=== PATIENT | male | born 1980 | race American Indian/Alaskan Native ===

== ENCOUNTER 2017-01-07 15:33 | Emergency (ER) | payer MEDICAID, MEDICARE ==
[2017-01-07] MEDS ORDERED: XYLOCAINE 1% 20 mL INFILTRATI ONE (20:20)
[2017-01-07] MEDS ORDERED: NORCO 5/325 PO ONE (21:26)
[2017-01-07] MEDS ORDERED: TRIPLE ANTIBIOTIC TP ONE (22:17)
--- NOTE | 2017-01-07 22:23 | Emergency Department Report ---
Abscess Boil HPI - HPI Chief Complaint: Skin/Abscess/Foreign Body Stated Complaint: BOIL UNDER LEFT ARM Duration: Today Location: Upper Extremity Severity: Mild History: Yes Pain, Yes Purulent Drainage, No Fever, No Numbness, No Foreign Body , No Previous History, No Insect Bite HPI: 36 year old male presents to ED with left arm axillary abscess x1 day. patient denies being diabetic. patient is stable, neurologically intact and in no acute distress. Home Medications: Previous Rx's Medication Instructions Recorded Last Taken Type Sulfamethoxazole/Trimethoprim 1 each PO BID #14 tablet 01/07/17 Unknown Rx [Bactrim DS TAB] Allergies/Adverse Reactions: Allergies Allergy/AdvReac Type Severity Reaction Status Date / Time No Known Allergies Allergy Verified 01/07/17 17:28 ED Review of Systems ROS: Stated complaint: BOIL UNDER LEFT ARM Other details as noted in HPI Constitutional: denies: chills, fever Eyes: denies: eye pain, eye discharge, vision change ENT: denies: ear pain, throat pain Respiratory: denies: cough, shortness of breath, wheezing Cardiovascular: denies: chest pain, palpitations Endocrine: no symptoms reported Gastrointestinal: denies: abdominal pain, nausea, diarrhea Genitourinary: denies: urgency, dysuria Musculoskeletal: denies: back pain, joint swelling, arthralgia Skin: other (left axillary abscess). denies: rash, lesions Neurological: denies: headache, weakness, paresthesias Psychiatric: denies: anxiety, depression Hematological/Lymphatic: denies: easy bleeding, easy bruising ED Past Medical Hx - Past Medical History Previous Medical History?: Yes Hx Hypertension: Yes - Surgical History Past Surgical History?: Yes Additional Surgical History: back - Social History Smoking Status: Never Smoker Substance Use Type: None - Medications Home Medications: Home Medications Medication Instructions Recorded Confirmed Last Taken Type Sulfamethoxazole/Trimethoprim 1 each PO BID #14 tablet 01/07/17 Unknown Rx [Bactrim DS TAB] ED Abscess Boil Physical Exam - Exam General: Vital signs noted. No distress. Alert and acting appropriately. Size: 3 cm Exam: Yes Tenderness, Yes Fluctuance, Yes Normal Neurologic Exam, Yes Normal Circulation, No Surrounding Cellulites/Erythema, No Lymphangitis, No Crepitation , No Heart Murmur I & D Note - I & D Note I & D Note: area prepped with betadine. area numbed with 1% lidocaine 10cc's. moderate amount of purulent drainage from abscess during procedure. patient tolerated procedure well. patient agrees and understands to return to ED within 2-3 days for recheck. ED Course Vital Signs 01/07/17 17:28 Temperature 97.4 F L Pulse Rate 102 H Respiratory 16 Rate Blood Pressure 128/76 O2 Sat by Pulse 98 Oximetry Critical care attestation.: If time is entered above; I have spent that time in minutes in the direct care of this critically ill patient, excluding procedure time. ED Medical Decision Making - Lab Data Temp Pulse Resp BP Pulse Ox 99.2 F 99 H 18 133/97 100 01/07/17 22:40 01/07/17 22:40 01/07/17 22:40 01/07/17 22:40 01/07/17 22:40 - Medical Decision Making 36 year old male presents to ED with left axillary abscess x1 day. patient tolerated I&D well. patient is stable, neurologically intact and in no acute distress. patient is to return to ED within 2-3 days for recheck of abscess. ED Disposition Clinical Impression: Abscess of axilla, left Disposition: DC-01 TO HOME OR SELFCARE Is pt being admited?: No Does the pt Need Aspirin: No Condition: Stable Instructions: Abscess (ED) Additional Instructions: please return to ED or urgent care in 3 days for recheck Prescriptions: Sulfamethoxazole/Trimethoprim [Bactrim DS TAB] 1 each PO BID #14 tablet Referrals: PRIMARY CARE, [Primary Care Provider] - 3-5 Days
[2017-01-07 22:41] VITALS: BP 133/97
== END 2017-01-07 22:59 | disposition home or self-care (01) ==
LOC: ED 15:33
DX: L02.412 Cutaneous abscess of left axilla (principal); I10 Essential (primary) hypertension
CPT/HCPCS: 87116; A6250

== ENCOUNTER 2017-11-03 07:49 | Emergency (ER) | payer MEDICARE, MEDICAID ==
[2017-11-03 08:03] VITALS: BP 136/79
--- NOTE | 2017-11-03 09:46 | Emergency Department Report ---
Abscess Boil HPI - HPI Chief Complaint: Skin/Abscess/Foreign Body Stated Complaint: KNOT ON LEFT NECK Time Seen by Provider: 11/03/17 08:54 Duration: 1 Day Location: Neck (right side of neck) Severity: Mild History: Yes Pain, No Fever, No Purulent Drainage, No Numbness, No Foreign Body , No Previous History, No Insect Bite HPI: This is a 37-year-old -[place] male presents with a bump to the right side of neck since yesterday. Patient states he used hair removal cream that was prescribed by primary care provider yesterday afternoon. He noticed swelling and pain to the right side of her neck a few hours later after using cream. The bump started out small but increased in size a few hours later. It is painful to touch without drainage. Patient denies taking anything for symptoms. Denies fever, difficulty swallowing, insect bite, and numbness or tingling. Home Medications: Previous Rx's Medication Instructions Recorded Last Taken Type Sulfamethoxazole/Trimethoprim 1 each PO BID #14 tablet 01/07/17 Unknown Rx [Bactrim DS TAB] Ibuprofen [Motrin 600 MG tab] 600 mg PO Q8H PRN #15 tablet 11/03/17 Unknown Rx Sulfamethoxazole/Trimethoprim 1 each PO BID #14 tablet 11/03/17 Unknown Rx [Bactrim DS TAB] Allergies/Adverse Reactions: Allergies Allergy/AdvReac Type Severity Reaction Status Date / Time No Known Allergies Allergy Verified 01/07/17 17:28 ED Review of Systems ROS: Stated complaint: KNOT ON LEFT NECK Other details as noted in HPI Constitutional: denies: chills, fever Respiratory: denies: cough, shortness of breath, wheezing Cardiovascular: denies: chest pain, palpitations Gastrointestinal: denies: abdominal pain, nausea, diarrhea Skin: lesions (abscess on right side of neck). denies: rash Neurological: denies: headache, weakness, paresthesias Psychiatric: denies: anxiety, depression ED Past Medical Hx - Past Medical History Previous Medical History?: Yes Hx Hypertension: Yes - Surgical History Past Surgical History?: Yes Additional Surgical History: back - Social History Smoking Status: Never Smoker Substance Use Type: None - Medications Home Medications: Home Medications Medication Instructions Recorded Confirmed Last Taken Type Sulfamethoxazole/Trimethoprim 1 each PO BID #14 tablet 01/07/17 Unknown Rx [Bactrim DS TAB] Ibuprofen [Motrin 600 MG tab] 600 mg PO Q8H PRN #15 tablet 11/03/17 Unknown Rx Sulfamethoxazole/Trimethoprim 1 each PO BID #14 tablet 11/03/17 Unknown Rx [Bactrim DS TAB] ED Abscess Boil Physical Exam - Exam General: Vital signs noted. No distress. Alert and acting appropriately. Front/Back of Body, Lg (Color): 1 - 1 cm fluctuant nodule on right side of the neck, tender, no active drainage Size: 1 cm Exam: Yes Tenderness, Yes Fluctuance, Yes Normal Neurologic Exam, Yes Normal Circulation, No Surrounding Cellulites/Erythema, No Lymphangitis, No Crepitation , No Heart Murmur I & D Note - I & D Note I & D Note: The area was prepared and draped in the usual, sterile manner. The site was anesthetized with 2% lidocaine without epinephrine. A linear incision along the local skin lines was made and the purulent material expressed. The abcess was explored thoroughly and sequestered pockets were opened. Bleeding was minimal. Packing: idodoform. Followup: The patient tolerated the procedure well without complications. Standard post-procedure care was explained and return precautions are given. ED Course Vital Signs 11/03/17 08:02 Temperature 98.8 F Pulse Rate 85 Respiratory 18 Rate Blood Pressure 136/79 O2 Sat by Pulse 98 Oximetry Critical care attestation.: If time is entered above; I have spent that time in minutes in the direct care of this critically ill patient, excluding procedure time. ED Medical Decision Making - Medical Decision Making Patient is stable and examined by myself and faster. No acute signs of distress noted. Patient given tetanus vaccine. I&D performed refer to note. Discussed plan to start bactrim DS and ibuprofen with patient. Educated patient on follow up plan to have packing removed and wound reassessed in 2-3 days. Patient agrees to ED plan of care. Discharged home and follow up with PCP in 2-3 days. ED Disposition Clinical Impression: Abscess of skin of neck Disposition: TO HOME OR SELFCARE Is pt being admited?: No Does the pt Need Aspirin: No Condition: Stable Instructions: Abscess (ED), Incision and Drainage (ED), Acute Wound Care (ED) Additional Instructions: Keep packing in place for 2-3 days. Return to ER or f/u with PCP to have packing removed and wound reassessed in 48 hours. Complete full round of bactrim DS antibiotic as prescribed. Follow up with PCP or ER in 2-3 days. Return to ER if foul smelling discharge, swelling, or severe pain to wound. Prescriptions: Ibuprofen [Motrin 600 MG tab] 600 mg PO Q8H PRN #15 tablet PRN Reason: Pain Sulfamethoxazole/Trimethoprim [Bactrim DS TAB] 1 each PO BID #14 tablet Referrals: CLAUDIA BOUCHER MD [Staff Physician] - 3-5 Days [facility] [Provider Group] - 3-5 Days [facility] [Provider Group] - 3-5 Days Forms: Work/School Release Form(ED) Time of Disposition: 10:36 Print Language: INDONESIAN
[2017-11-03] MEDS ORDERED: XYLOCAINE 2% INFILTRATI ONE ×2 (10:08→10:13)
[2017-11-03] MEDS ORDERED: BOOSTRIX IM ONE (10:33)
== END 2017-11-03 11:03 | disposition home or self-care (01) ==
LOC: ED 07:49
DX: L02.11 Cutaneous abscess of neck (principal); I10 Essential (primary) hypertension; Z79.899 Other long term (current) drug therapy
CPT/HCPCS: 90471; 90715

== ENCOUNTER 2019-02-09 12:29 | Emergency (ER) | payer MEDICARE ==
[2019-02-09 12:54] VITALS: BP 109/76
--- NOTE | 2019-02-09 12:55 | Event Note ---
ED Screening Note Date of service: 02/09/19 Time: 12:53 ED Screening Note: This is a 38 y.o. M. that presents to the ER with one episode of hematochezia today. PMH of HTN This initial assessment/diagnostic orders/clinical plan/treatment(s) is/are subject to change based on patients health status, clinical progression and re- assessment by fellow clinical providers in the ED. Further treatment and workup at subsequent clinical providers discretion. Patient/guardian urged not to elope from the ED as their condition may be serious if not clinically assessed and managed. Initial orders include: Labs
[2019-02-09 13:40] LABS: Basophils # (Auto) 0.1 K/mm3 (0.0-0.1); Basophils % (Auto) 0.8 % (0.0-1.8); Eosinophils # (Auto) 0.1 K/mm3 (0.0-0.4); Hematocrit 43.6 % (35.5-45.6); Hemoglobin 14.5 gm/dl (11.8-15.2); Lymphocytes # (Auto) 2.7 K/mm3 (1.2-5.4); Lymphocytes % (Auto) 41.8 % (13.4-35.0); Mean Corpuscular HGB Conc 33 % (32-34); Mean Corpuscular Volume 87 fl (84-94); Monocytes # (Auto) 0.3 K/mm3 (0.0-0.8); Monocytes % (Auto) 4.8 % (0.0-7.3); Platelet Count 203 K/mm3 (140-440); Red Blood Count 5.01 M/mm3 (3.65-5.03); Red Cell Distribution Width 13.4 % (13.2-15.2)
--- NOTE | 2019-02-09 13:41 | Emergency Department Report ---
ED GI Bleed HPI - General Chief complaint: GI Bleed Stated complaint: BLEEDING FROM ANUS Time Seen by Provider: 02/09/19 12:53 Source: patient Mode of arrival: Ambulatory Limitations: No Limitations - History of Present Illness Initial comments: 38 yo male comes to er with co rectal bleeding x 1 this am. bright red on tissue. never had this happen in past. denies hemorrhoids. never had colonoscopy. On arrival ambulatory with normal VS. No abd pain. No n/v/d. He has not had dark black stools. Pt is not on blood thinners. complaint: blood on toilet paper -: hour(s) Associated Symptoms: denies other symptoms - Related Data Previous Rx's Medication Instructions Recorded Last Taken Type Sulfamethoxazole/Trimethoprim 1 each PO BID #14 tablet 01/07/17 Unknown Rx [Bactrim DS TAB] Sulfamethoxazole/Trimethoprim 1 each PO BID #14 tablet 11/03/17 Unknown Rx [Bactrim DS TAB] Clindamycin [Clindamycin CAP] 300 mg PO Q8H #20 cap 04/28/18 Unknown Rx Ibuprofen [Motrin 600 MG tab] 600 mg PO Q8H PRN #15 tablet 04/28/18 Unknown Rx Allergies Allergy/AdvReac Type Severity Reaction Status Date / Time No Known Allergies Allergy Verified 01/07/17 17:28 ED Review of Systems ROS: Stated complaint: BLEEDING FROM ANUS Other details as noted in HPI Comment: All other systems reviewed and negative ED Past Medical Hx - Past Medical History Hx Hypertension: Yes - Surgical History Past Surgical History?: No Additional Surgical History: back - Family History Family history: no significant - Social History Smoking Status: Never Smoker Substance Use Type: None - Medications Home Medications: Home Medications Medication Instructions Recorded Confirmed Last Taken Type Sulfamethoxazole/Trimethoprim 1 each PO BID #14 tablet 01/07/17 Unknown Rx [Bactrim DS TAB] Sulfamethoxazole/Trimethoprim 1 each PO BID #14 tablet 11/03/17 Unknown Rx [Bactrim DS TAB] Clindamycin [Clindamycin CAP] 300 mg PO Q8H #20 cap 04/28/18 Unknown Rx Ibuprofen [Motrin 600 MG tab] 600 mg PO Q8H PRN #15 tablet 04/28/18 Unknown Rx ED Physical Exam - General Limitations: No Limitations General appearance: alert, in no apparent distress - Head Head exam: Present: atraumatic, normocephalic - Eye Eye exam: Present: normal appearance - ENT ENT exam: Present: mucous membranes moist - Neck Neck exam: Present: normal inspection - Respiratory Respiratory exam: Present: normal lung sounds bilaterally. Absent: respiratory distress - Cardiovascular Cardiovascular Exam: Present: regular rate, normal rhythm. Absent: systolic murmur, diastolic murmur, rubs, gallop - GI/Abdominal GI/Abdominal exam: Present: soft, normal bowel sounds - Rectal Rectal exam: Present: normal inspection, heme (-) stool, hemorrhoids (internal) - exam: Present: normal inspection - Extremities Exam Extremities exam: Present: normal inspection - Back Exam Back exam: Present: normal inspection - Neurological Exam Neurological exam: Present: alert, oriented X3 - Psychiatric Psychiatric exam: Present: normal affect, normal mood - Skin Skin exam: Present: warm, dry, intact, normal color. Absent: rash ED Course Vital Signs 02/09/19 12:52 Temperature 98.4 F Pulse Rate 73 Respiratory 18 Rate Blood Pressure 109/76 O2 Sat by Pulse 99 Oximetry ED Medical Decision Making - Lab Data Result diagrams: 02/09/19 13:11 02/09/19 13:11 - Medical Decision Making Lab Results 02/09/19 Range/Units 13:11 WBC 6.5 (4.5-11.0) K/mm3 RBC 5.01 (3.65-5.03) M/mm3 Hgb 14.5 (11.8-15.2) gm/dl Hct 43.6 (35.5-45.6) % MCV 87 (84-94) fl MCH 29 (28-32) pg MCHC 33 (32-34) % RDW 13.4 (13.2-15.2) % Plt Count 203 (140-440) K/mm3 Lymph % (Auto) 41.8 H (13.4-35.0) % Peach % (Auto) 4.8 (0.0-7.3) % Eos % (Auto) 1.0 (0.0-4.3) % Baso % (Auto) 0.8 (0.0-1.8) % Lymph # 2.7 (1.2-5.4) K/mm3 Peach # 0.3 (0.0-0.8) K/mm3 Eos # 0.1 (0.0-0.4) K/mm3 Baso # 0.1 (0.0-0.1) K/mm3 Seg Neutrophils % 51.6 (40.0-70.0) % Seg Neutrophils # 3.4 (1.8-7.7) K/mm3 Vital Signs 02/09/19 12:52 Temperature 98.4 F Pulse Rate 73 Respiratory 18 Rate Blood Pressure 109/76 O2 Sat by Pulse 99 Oximetry heme neg stool VS normal - no tachycardia, no hypotension; no abd pain; abd snt on exam; no n/v/d h/h normal dc home with GI follow up. Pt verbalizes understanding - Differential Diagnosis ro gib/hemorroids Critical care attestation.: If time is entered above; I have spent that time in minutes in the direct care of this critically ill patient, excluding procedure time. ED Disposition Clinical Impression: Hemorrhoid Disposition: DC-01 TO HOME OR SELFCARE Is pt being admited?: No Does the pt Need Aspirin: No Condition: Stable Instructions: Hemorrhoids (ED) Additional Instructions: OTC PREPARATION H FOR ITCHING OR RECTAL PAIN BLOOD COUNTS NORMAL TODAY FOLLOW UP WITH GI MD REFERRAL BELOW Referrals: MEE MÁRQUEZ MD [Staff Physician] - 3-5 Days RADHA HERRERA MD [Staff Physician] - 3-5 Days FAITH AVILA MD [Staff Physician] - 3-5 Days Time of Disposition: 13:46
[2019-02-09 13:50] LABS: BUN/Creatinine Ratio 16; Blood Urea Nitrogen 19 mg/dL (9-20); Calcium 9.5 mg/dL (8.4-10.2); Hemolysis Index 17
== END 2019-02-09 14:15 | disposition home or self-care (01) ==
LOC: ED 12:29
DX: K64.8 Other hemorrhoids (principal); I10 Essential (primary) hypertension; Z79.1 Long term (current) use of non-steroidal anti-inflammatories (NSAID); Z79.899 Other long term (current) drug therapy
CPT/HCPCS: 36415; 80048; 85025

== ENCOUNTER 2020-08-29 15:25 | Emergency (ER) | payer MEDICARE | END 2020-08-29 15:30 | disposition left against medical advice (07) | LOC: ED 15:25 | DX: M79.602 Pain in left arm (principal); Z53.21 Procedure and treatment not carried out due to patient leaving prior to being seen by health care provider ==

== ENCOUNTER 2020-08-30 13:05 | Emergency (ER) | payer MEDICARE ==
[2020-08-30] MEDS ORDERED: ACETAMINOPHEN 500 MG TAB PO STA (15:35)
[2020-08-30] MEDS ORDERED: IBUPROFEN 800 MG TAB PO STA (15:35)
--- NOTE | 2020-08-30 15:35 | Emergency Department Report ---
ED General Adult HPI - General Chief complaint: Skin/Abscess/Foreign Body Stated complaint: LT ARM Time Seen by Provider: 08/30/20 15:04 Source: patient Mode of arrival: Ambulatory Limitations: No Limitations - History of Present Illness Initial comments: 40-year-old -[place] male patient presents with complaints of painful bumps under the left arm for many years, worsening over the past few days. He denies being previously diagnosed with hidradenitis suppurativa. No fever/chills/sweats or difficulty moving his arm per patient. He rates his current pain as a 7/10 in severity. He denies any other past medical history - Related Data Previous Rx's Medication Instructions Recorded Last Taken Type Sulfamethoxazole/Trimethoprim 1 each PO BID #14 tablet 01/07/17 Unknown Rx [Bactrim DS TAB] Sulfamethoxazole/Trimethoprim 1 each PO BID #14 tablet 11/03/17 Unknown Rx [Bactrim DS TAB] Clindamycin [Clindamycin CAP] 300 mg PO Q8H #20 cap 04/28/18 Unknown Rx Ibuprofen [Motrin 600 MG tab] 600 mg PO Q8H PRN #15 tablet 04/28/18 Unknown Rx Azithromycin [Zithromax Z-AISHA] 250 mg PO DAILY #6 tablet 04/10/19 Unknown Rx Benzonatate [Tessalon Perles] 100 mg PO Q8HR PRN #20 capsule 04/10/19 Unknown Rx Acetaminophen [Acetaminophen TAB] 1,000 mg PO Q6HR #30 tablet 08/30/20 Unknown Rx Doxycycline Monohydrate 100 mg PO BID 10 Days #20 capsule 08/30/20 Unknown Rx Ibuprofen [Motrin 800 MG tab] 800 mg PO Q8HR PRN #20 tablet 08/30/20 Unknown Rx Mupirocin [Bactroban 2% OINT] 1 applic TP TID 10 Days #1 tube 08/30/20 Unknown Rx Allergies Allergy/AdvReac Type Severity Reaction Status Date / Time No Known Allergies Allergy Verified 08/30/20 14:00 ED Review of Systems ROS: Stated complaint: LT ARM Other details as noted in HPI Constitutional: denies: chills, malaise, weakness Skin: lesions. denies: rash, pruritus Neurological: denies: numbness ED Past Medical Hx - Past Medical History Hx Hypertension: Yes - Surgical History Additional Surgical History: back - Social History Smoking Status: Never Smoker Substance Use Type: None - Medications Home Medications: Home Medications Medication Instructions Recorded Confirmed Last Taken Type Sulfamethoxazole/Trimethoprim 1 each PO BID #14 tablet 01/07/17 Unknown Rx [Bactrim DS TAB] Sulfamethoxazole/Trimethoprim 1 each PO BID #14 tablet 11/03/17 Unknown Rx [Bactrim DS TAB] Clindamycin [Clindamycin CAP] 300 mg PO Q8H #20 cap 04/28/18 Unknown Rx Ibuprofen [Motrin 600 MG tab] 600 mg PO Q8H PRN #15 tablet 04/28/18 Unknown Rx Azithromycin [Zithromax Z-AISHA] 250 mg PO DAILY #6 tablet 04/10/19 Unknown Rx Benzonatate [Tessalon Perles] 100 mg PO Q8HR PRN #20 capsule 04/10/19 Unknown Rx Acetaminophen [Acetaminophen TAB] 1,000 mg PO Q6HR #30 tablet 08/30/20 Unknown Rx Doxycycline Monohydrate 100 mg PO BID 10 Days #20 capsule 08/30/20 Unknown Rx Ibuprofen [Motrin 800 MG tab] 800 mg PO Q8HR PRN #20 tablet 08/30/20 Unknown Rx Mupirocin [Bactroban 2% OINT] 1 applic TP TID 10 Days #1 tube 08/30/20 Unknown Rx ED Physical Exam - General Limitations: No Limitations General appearance: alert, in no apparent distress - Head Head exam: Present: atraumatic, normocephalic - Eye Eye exam: Present: normal appearance - Neck Neck exam: Present: normal inspection - Respiratory Respiratory exam: Absent: respiratory distress - Cardiovascular Cardiovascular Exam: Present: regular rate - Neurological Exam Neurological exam: Present: alert, oriented X3 - Psychiatric Psychiatric exam: Present: normal affect, normal mood - Skin Skin exam: Present: warm, dry, other (Scarring in multiple pustules noted without fluctuance noted to the left axilla; mild active drainage of one individual pustule with tenderness to palpation noted no cellulitic changes noted;) ED Course Vital Signs 08/30/20 14:04 Temperature 98.0 F Pulse Rate 83 Respiratory 20 Rate Blood Pressure 146/88 O2 Sat by Pulse 98 Oximetry ED Medical Decision Making - Medical Decision Making 40-year-old -[place] male patient presents with complaints of painful bumps under the left arm for many years, worsening over the past few days. He denies being previously diagnosed with hidradenitis suppurativa. No fev er/chills/sweats or difficulty moving his arm per patient. He rates his current pain as a 7/10 in severity. He denies any other past medical history Hidradenitis suppurativa noted on exam. Will treat with doxycycline, mupirocin, and Hibiclens soap. Recommend follow-up with dermatology for further evaluation and treatment. He is well-appearing, his vitals are within normal limits, he is stable for discharge home. Strict return precautions were discussed in detail with patient who verbalizes understanding. Critical care attestation.: If time is entered above; I have spent that time in minutes in the direct care of this critically ill patient, excluding procedure time. ED Disposition Clinical Impression: Hidradenitis suppurativa Disposition: - TO HOME OR SELFCARE Is pt being admited?: No Condition: Stable Instructions: Hidradenitis Suppurativa, Skin Abscess Additional Instructions: Please purchase [id number] Hibiclens soap and wash underneath your arm twice daily with this SURGERY, DERMATOLOGIC DERMATOLOGY Pedro Mcguire MD [facility] [address] [place] [id number] Hours Thursday and Thursday 8:30 - 12:30 - office - fax Prescriptions: Acetaminophen [Acetaminophen TAB] 1,000 mg PO Q6HR #30 tablet Mupirocin [Bactroban 2% OINT] 1 applic TP TID 10 Days #1 tube Doxycycline Monohydrate 100 mg PO BID 10 Days #20 capsule Ibuprofen [Motrin 800 MG tab] 800 mg PO Q8HR PRN #20 tablet PRN Reason: Pain
[2020-08-30 15:57] VITALS: BP 133/77
== END 2020-08-30 15:55 | disposition home or self-care (01) ==
LOC: ED 13:05
DX: L73.2 Hidradenitis suppurativa (principal); I10 Essential (primary) hypertension; Z98.890 Other specified postprocedural states; Z79.1 Long term (current) use of non-steroidal anti-inflammatories (NSAID); Z79.2 Long term (current) use of antibiotics; Z79.899 Other long term (current) drug therapy
CPT/HCPCS: 99282

== ENCOUNTER 2020-11-05 10:22 | Emergency (ER) | payer MEDICARE ==
[2020-11-05 11:01] VITALS: BP 121/76
[2020-11-05 11:41] LABS: Bilirubin,Urine NEG (Negative); Blood,Urine NEG (Negative); Color,Urine Straw (Yellow); Hyaline Casts,Urine 1 /LPF; Protein,Urine <15 mg/dL mg/dL (Negative); Urobilinogen,Urine < 2.0 mg/dL (<2.0)
[2020-11-05 12:45] LABS: WBC,Urine < 1.0 /HPF (0.0-6.0)
--- NOTE | 2020-11-05 12:51 | Emergency Department Report ---
ED Male HPI - General Chief complaint: Urogenital-Male Stated complaint: POSS STD Time Seen by Provider: 11/05/20 11:17 Source: patient Mode of arrival: Ambulatory Limitations: No Limitations - History of Present Illness Initial comments: This is a 40-year-old male nontoxic, well nourished in appearance, no acute signs of distress presents to the ED with c/o of slight white-colored penile discharge x2 days. Patient denies any testicular pain or swelling. Patient denies any penile ulcers or lesions. Patient denies any nausea, vomiting, chest pain, shortness of breathe, fever, chills, headache, back pain, numbness, tingling, stiff neck. Denies any pelvic or abdominal pains. Patient denies any urinary symptoms. Patient denies any allergies or PMH. MD Complaint: penile discharge -: days(s) Radiation: none Severity scale (0 -10): 0 Consistency: intermittent Improves with: none Worsens with: none discharge. denies: swelling, mass, rash, urinary retention, blood in urine, dysuria, fever, nausea/vomiting, incontinence - Related Data Sexually active: Yes Previous Rx's Medication Instructions Recorded Last Taken Type Sulfamethoxazole/Trimethoprim 1 each PO BID #14 tablet 01/07/17 Unknown Rx [Bactrim DS TAB] Sulfamethoxazole/Trimethoprim 1 each PO BID #14 tablet 11/03/17 Unknown Rx [Bactrim DS TAB] Clindamycin [Clindamycin CAP] 300 mg PO Q8H #20 cap 04/28/18 Unknown Rx Ibuprofen [Motrin 600 MG tab] 600 mg PO Q8H PRN #15 tablet 04/28/18 Unknown Rx Azithromycin [Zithromax Z-AISHA] 250 mg PO DAILY #6 tablet 04/10/19 Unknown Rx Benzonatate [Tessalon Perles] 100 mg PO Q8HR PRN #20 capsule 04/10/19 Unknown Rx Acetaminophen [Acetaminophen TAB] 1,000 mg PO Q6HR #30 tablet 08/30/20 Unknown Rx Doxycycline Monohydrate 100 mg PO BID 10 Days #20 capsule 08/30/20 Unknown Rx Ibuprofen [Motrin 800 MG tab] 800 mg PO Q8HR PRN #20 tablet 08/30/20 Unknown Rx Mupirocin [Bactroban 2% OINT] 1 applic TP TID 10 Days #1 tube 08/30/20 Unknown Rx Allergies Allergy/AdvReac Type Severity Reaction Status Date / Time No Known Allergies Allergy Verified 11/05/20 10:56 ED Review of Systems ROS: Stated complaint: POSS STD Other details as noted in HPI Comment: All other systems reviewed and negative Constitutional: denies: chills, fever Eyes: denies: eye pain, eye discharge, vision change ENT: denies: ear pain, throat pain Respiratory: denies: cough, shortness of breath, wheezing Cardiovascular: denies: chest pain, palpitations Endocrine: no symptoms reported Gastrointestinal: denies: abdominal pain, nausea, diarrhea Genitourinary: discharge. denies: urgency, dysuria, frequency, hematuria, testicular pain, testicular mass Musculoskeletal: denies: back pain, joint swelling, arthralgia Skin: denies: rash, lesions Neurological: denies: headache, weakness, paresthesias Psychiatric: denies: anxiety, depression Hematological/Lymphatic: denies: easy bleeding, easy bruising ED Past Medical Hx - Past Medical History Hx Hypertension: Yes - Surgical History Additional Surgical History: back - Social History Smoking Status: Never Smoker Substance Use Type: None - Medications Home Medications: Home Medications Medication Instructions Recorded Confirmed Last Taken Type Sulfamethoxazole/Trimethoprim 1 each PO BID #14 tablet 01/07/17 Unknown Rx [Bactrim DS TAB] Sulfamethoxazole/Trimethoprim 1 each PO BID #14 tablet 11/03/17 Unknown Rx [Bactrim DS TAB] Clindamycin [Clindamycin CAP] 300 mg PO Q8H #20 cap 04/28/18 Unknown Rx Ibuprofen [Motrin 600 MG tab] 600 mg PO Q8H PRN #15 tablet 04/28/18 Unknown Rx Azithromycin [Zithromax Z-AISHA] 250 mg PO DAILY #6 tablet 04/10/19 Unknown Rx Benzonatate [Tessalon Perles] 100 mg PO Q8HR PRN #20 capsule 04/10/19 Unknown Rx Acetaminophen [Acetaminophen TAB] 1,000 mg PO Q6HR #30 tablet 08/30/20 Unknown Rx Doxycycline Monohydrate 100 mg PO BID 10 Days #20 capsule 08/30/20 Unknown Rx Ibuprofen [Motrin 800 MG tab] 800 mg PO Q8HR PRN #20 tablet 08/30/20 Unknown Rx Mupirocin [Bactroban 2% OINT] 1 applic TP TID 10 Days #1 tube 08/30/20 Unknown Rx ED Physical Exam - General Limitations: No Limitations General appearance: alert, in no apparent distress - Head Head exam: Present: atraumatic, normocephalic - Eye Eye exam: Present: normal appearance - Neck Neck exam: Present: normal inspection, full ROM. Absent: lymphadenopathy - Respiratory Respiratory exam: Absent: respiratory distress - Cardiovascular Cardiovascular Exam: Present: regular rate - GI/Abdominal GI/Abdominal exam: Present: soft. Absent: distended, tenderness - Extremities Exam Extremities exam: Present: normal inspection, full ROM - Back Exam Back exam: Present: normal inspection, full ROM. Absent: tenderness, CVA tenderness (R), CVA tenderness (L), muscle spasm, paraspinal tenderness, vertebral tenderness, rash noted - Neurological Exam Neurological exam: Present: alert, oriented X3, normal gait - Psychiatric Psychiatric exam: Present: normal affect, normal mood - Skin Skin exam: Present: warm, dry, intact, normal color. Absent: rash ED Course Vital Signs 11/05/20 10:59 Temperature 98.7 F Pulse Rate 69 Respiratory 18 Rate Blood Pressure 121/76 O2 Sat by Pulse 97 Oximetry - Reevaluation(s) Reevaluation #1: 11/05/20 12:49 Patient is speaking in full sentences with no signs of distress noted. ED Medical Decision Making - Lab Data Lab Results 11/05/20 Range/Units Unknown Urine Color Straw (Yellow) Urine Turbidity Clear (Clear) Urine pH 7.0 (5.0-7.0) Ur Specific [place] 1.010 (1.003-1.030) Urine Protein <15 mg/dl (Negative) mg/dL Urine Glucose (UA) Neg (Negative) mg/dL Urine Ketones Neg (Negative) mg/dL Urine Blood Neg (Negative) Urine Nitrite Neg (Negative) Urine Bilirubin Neg (Negative) Urine Urobilinogen < 2.0 (<2.0) mg/dL Ur Leukocyte Esterase Neg (Negative) Urine WBC (Auto) < 1.0 (0.0-6.0) /HPF Urine RBC (Auto) 1.0 (0.0-6.0) /HPF Hyaline Casts 1 /LPF - Medical Decision Making This is a 40-year-old male that presents with penile discharge. Patient is stable was examined by me. There is no abdominal tenderness. No pelvic pain. UA obtained. Gonorrhea chlamydia UA pending. Patient was instructed to return in 3-5 days for GC results. Patient's urine is otherwise unremarkable. Patient was instructed to Follow-up with a primary care doctor in 3-5 days or if symptoms worsen and continue return to emergency room as soon as possible. At time of discharge, the patient does not seem toxic or ill in appearance. No acute signs of distress noted. Patient agrees to discharge treatment plan of care. No further questions noted by the patient. Critical care attestation.: If time is entered above; I have spent that time in minutes in the direct care of this critically ill patient, excluding procedure time. ED Disposition Clinical Impression: Penile discharge Disposition: 01 HOME / SELF CARE / HOMELESS Is pt being admited?: No Does the pt Need Aspirin: No Condition: Stable Instructions: Safe Sex Additional Instructions: Follow-up with a primary care doctor in 3-5 days or if symptoms worsen and continue return to emergency room as soon as possible. Referrals: RIC LARSON MD [Referring] - 3-5 Days CHRISTINA DE LA CRUZ MD [Staff Physician] - 3-5 Days Time of Disposition: 12:51
== END 2020-11-06 04:32 | disposition home or self-care (01) ==
LOC: ED 10:22
DX: R36.9 Urethral discharge, unspecified (principal); I10 Essential (primary) hypertension; Z98.890 Other specified postprocedural states
CPT/HCPCS: 81001; 99282